=== PATIENT | female | born 1990 | race Caucasian/White ===

== ENCOUNTER 2020-11-27 14:35 | Observation (INO) | payer MEDICAID ==
[~2020-11-27] VITALS: Ht 180.3 cm; Wt 100.0 kg
--- NOTE | 2020-11-27 15:11 | NUR ---
PT BIB EMS OFUSE OF MEHT RESULTING IN PVISUAL AND AUDITORY HALLUCINATIONS. PER EMS THE PT STATES SHE IS HAVING A SHIZOPHRENIC BREAK. PT TO RN STATES SHE HAS SI THOUGHTS AND PLANS TO CUT HER WRISTS "TOMORROW". PT ALSO STATES SHE HAS HAD THESE THOUGHTS BEFORE. PT BELONGINGS PLACED IN 2 BAGS, LABELED AND PLACED IN SECURE LOCKER. PT PLACED IN HOSPITAL GOWN AND UNDERWEAR.ROOM SECURED.
--- NOTE | 2020-11-27 15:13 | NUR ---
SALES CLERK SUPERVISOR: HOUSE SUP/NURSING [facility]PS CALLED FOR SITTER. NO SERVICE LIAISON REPRESENTATIVE AVAILABLE, ORNAMENTER AT DOOR SITTER FOR CONTINUOUS SAFETY OBSERVATION.
--- NOTE | 2020-11-27 15:48 | NUR ---
URINE SENT TO LAB
[2020-11-27] MEDS ORDERED: OLANZAPINE 10 MG TABLET ONE (16:09)
--- NOTE | 2020-11-27 16:28 | NUR ---
AUNT "Ian" CONTACTED AT PTS REQUEST [phone].
[2020-11-27] MEDS ORDERED: OLANZAPINE ODT 10MG PO ONE (16:30)
--- NOTE | 2020-11-27 16:34 | NUR ---
PER GUY, PT IS ARGUING WITH HERSELF AND HITTING HERSELF IN THE FACE. NO NARANJO NOTABLE AT THIS TIME.
[2020-11-27 17:00] LABS: AMPHETAMINE SCREEN, URINE Positive (Negative); BARBITURATE SCREEN, URINE Negative (Negative); BENZODIAZEPINE SCREEN, URINE Negative (Negative); CANNABINOID SCREEN, URINE Positive (Negative); COCAINE SCREEN, URINE Negative (Negative); METHADONE SCREEN, URINE Negative (Negative); OPIATE SCREEN, URINE Negative (Negative)
[2020-11-27] MEDS ORDERED: LORazepam 1MG TABLET PO PRN (17:00)
[2020-11-27] MEDS ORDERED: DIPHENHYDRAMINE 25 MG CAPSULE PO PRN (17:00)
[2020-11-27] MEDS ORDERED: HALOPERIDOL 5 MG TABLET PO PRN (17:00)
[2020-11-27] MEDS ORDERED: HALOPERIDOL 5 MG/ML IM PRN (17:00)
[2020-11-27] MEDS ORDERED: LORazepam 2 MG/ML, 1ML IM PRN (17:00)
[2020-11-27] MEDS ORDERED: DIPHENHYDRAMINE 50 MG/ML, 1ML IM PRN (17:00)
[2020-11-27] MEDS ORDERED: LORazepam 1MG TABLET ONE ×2 (17:15→17:26)
[2020-11-27 17:23] LABS: BASOPHILS % (AUTO) 1 % (0-1); EOSINOPHILS % (AUTO) 1 % (1-7); LYMPHOCYTES % (AUTO) 25 % (22-44); MEAN CORPUSCULAR HEMOGLOBIN 30.8 pg (27.0-34.8); MEAN CORPUSCULAR HGB CONC 33.9 g/dL (32.4-35.8); MEAN PLATELET VOLUME 7.6 fL (7.4-10.4); MONOCYTES % (AUTO) 7 % (2-9); NEUTROPHILS % (AUTO) 66 % (42-75); PLATELET COUNT 249 x10^3/uL (130-400); RED CELL DISTRIBUTION WIDTH 13.7 % (9.6-15.2)
[2020-11-27] MEDS ORDERED: DIPHENHYDRAMINE 25 MG CAPSULE ONE (17:26)
[2020-11-27] MEDS ORDERED: HALOPERIDOL 5 MG TABLET ONE (17:27)
[2020-11-27 17:29] LABS: MD NO
[2020-11-27 17:34] LABS: ALANINE AMINOTRANSFERASE 25 U/L (12-78); ALBUMIN 3.7 g/dL (3.4-5.0); ANION GAP 7 mmol/L (5-15); CALCIUM 9.1 mg/dL (8.5-10.1); CHLORIDE 109 mmol/L (98-107); CREATININE 0.74 mg/dL (0.55-1.02)
[2020-11-27 17:39] LABS: ALKALINE PHOSPHATASE 79 U/L (45-117); BILIRUBIN,TOTAL 0.6 mg/dL (0.2-1.0); SALICYLATE LEVEL 2.9 mg/dL (2.8-20.0); TOTAL PROTEIN 6.8 g/dL (6.4-8.2)
--- NOTE | 2020-11-27 17:42 | NUR ---
PT MEDICATED PER MAR FOR AGITATION AND VISUAL HALLUCINATIONS
--- NOTE | 2020-11-27 21:24 | NUR ---
PT RESTING IN BED WITH PT ROOM SI SECURE. PT HAS SITTER AT PT BEDSIDE. PT HAS NO CURRENT WANTS OR NEEDS AT THIS TIME.
--- NOTE | 2020-11-27 22:59 | NUR ---
report from edith baldwin. Pt transferred to er 1. Pt has no needs at this time. sitter in view of pt.
--- NOTE | 2020-11-27 23:46 | NUR ---
packet faxed to [facility]
--- NOTE | 2020-11-28 01:16 | NUR ---
PT SLEEPING AT THIS TIME AND NO ACUTE DISTRESS.
--- NOTE | 2020-11-28 03:39 | NUR ---
PT SLEEPING AT THIS TIME, AND IN NO ACUTE DISTRESS.
--- NOTE | 2020-11-28 05:12 | NUR ---
PT ASLEEP AND IN NO ACUTE DISTRESS. SITTER OUTSIDE OF ROOMS, WITH EYES ON PT.
--- NOTE | 2020-11-28 06:44 | NUR ---
REPORT GIVEN TO PETRA MALHOTRA.
--- NOTE | 2020-11-28 08:24 | NUR ---
PT BREAKFAST TRAY DELIVERED. PT RESPONSIVE TO RN. PT DENIES PHYSICAL COMPLAINT. PT VSS. SUICIDE REASSESSMENT COMPLETED.
--- NOTE | 2020-11-28 08:36 | NUR ---
PT IN SECURED ROOM WITH SITTER IN LINE OF SIGHT.
[2020-11-28] MEDS ORDERED: PALIPERIDONE 3 MG TAB.ER.24 PO SCH (09:00)
--- NOTE | 2020-11-28 12:09 | NUR ---
PT LAYING ON SIDE RESTING WITH EYES CLOSED ON ED GURNEY. EVEN RISE AND FALL OF CHEST NOTED. NAD.
--- NOTE | 2020-11-28 12:10 | NUR ---
PT IN SECURE ROOM WITH SITTER IN SIGHT.
--- NOTE | 2020-11-28 13:21 | NUR ---
TASK RN, PT PROVIDED MEAL TRAY. SITTER AT DOORWAY.
--- NOTE | 2020-11-28 14:05 | NUR ---
report from michelle baldwin. as
--- NOTE | 2020-11-28 15:19 | NUR ---
sitter in place. pt resting in bed nad. as
--- NOTE | 2020-11-28 16:19 | NUR ---
resting in bed, nad. as
--- NOTE | 2020-11-28 18:34 | NUR ---
pt resting in bed, sitter in place, nad. as
--- NOTE | 2020-11-28 23:00 | NUR ---
PT RESTING IN BED WITH PT ROOM SI SECURE. PT HAS SITTER AT PT BEDSIDE. PT HAS NO CURRENT WANTS OR NEEDS AT THIS TIME.
--- NOTE | 2020-11-29 01:19 | NUR ---
PT RESTING IN BED WITH PT ROOM SI SECURE. PT HAS SITTER AT PT BEDSIDE. PT HAS NO CURRENT WANTS OR NEEDS AT THIS TIME.
--- NOTE | 2020-11-29 03:57 | NUR ---
PT RESTING IN BED WITH PT ROOM SI SECURE. PT HAS SITTER AT PT BEDSIDE. PT HAS NO CURRENT WANTS OR NEEDS AT THIS TIME.
--- NOTE | 2020-11-29 05:28 | NUR ---
PT RESTING IN BED WITH PT ROOM SI SECURE. PT HAS SITTER AT PT BEDSIDE. PT HAS NO CURRENT WANTS OR NEEDS AT THIS TIME.
--- NOTE | 2020-11-29 07:15 | NUR ---
rec bs report pt resting nadn
== END 2020-11-29 12:27 | disposition home or self-care (01) ==
LOC: EDBD 14:35 → MERGE 18:17 → ED 18:17 → EDIP 21:38 → INTOOBSV 21:38
PROVIDERS: ADMIT Emergency Medicine; ATTEND Emergency Medicine
DX: F25.0 Schizoaffective disorder, bipolar type (principal); R45.851 Suicidal ideations; F41.9 Anxiety disorder, unspecified; F15.259 Other stimulant dependence with stimulant-induced psychotic disorder, unspecified; F15.229 Other stimulant dependence with intoxication, unspecified; F17.200 Nicotine dependence, unspecified, uncomplicated; F10.10 Alcohol abuse, uncomplicated; Z79.899 Other long term (current) drug therapy; Z63.8 Other specified problems related to primary support group; Z91.14 Patient's other noncompliance with medication regimen
CPT/HCPCS: 36415; 80053; 80299; 80307; 80320; 80329; 84703; 85025; 93005; 99284; G0378; Q0163; G0480